=== PATIENT | female | born 1995 | race Caucasian/White ===

== ENCOUNTER 2018-04-20 11:24 | Emergency (ER) | payer OTHER, SELFPAY ==
[2018-04-20 11:25] VITALS: BP 119/70; PULSE 82; RESP 16; TEMP 36.4; O2SAT 98; BMI 25.4
--- NOTE | 2018-04-20 12:01 | ED.DCSUM_ITS ---
- ER Visit Summary Date of Service: 04/20/18 Chief Complaint: Left external vaginal area infection History of Present Illness: The patient is a 22 F states since Monday she had infection of the left outer vaginal area after shaving. Denies any vaginal bleeding or discharge. Area. Denies any fever. Prior history which she resolved on her own. Physical Examination: Well-appearing young female. Vital signs are stable afebrile. Accompanied by female friend. H EENT exam unremarkable. Neck nontender no lymphadenopathy. Lungs clear to auscultation bilaterally. Heart regular rhythm no murmur. Abdomen soft nontender. She is moving all 4 extremities. Neurovascular intact. Neurologic exam normal. External exam evaluated with female nurse present in the room. Patient has a piercing at the 12 o'clock position of her superior area of her vagina. The left lower labia majora is slightly red and swollen. There appears to be an external folliculitis from shaving. There is no large abscess. It is only mildly tender. The tissue appears to be indurated. There is no fluctuance. Right side and upper aspect of her vagina is not involved. There is no obvious vaginal bleeding or discharge. Test Results: None Emergency Department Course and Treatment: Treatment Plan: Patient does not want any procedures done. She wants to try conservative approach. Warm complexes. Keflex 4 times daily for 10 days. She knows return immediately if this is getting worse to have it incised and drained. She understands that this may need to happen. Disposition: Discharge Impression: Acute left lower labia majora soft tissue infection secondary to folliculitis from shaving This note was generated with [employer] dictation software. It may contain incorrect words, spelling, and punctuation that were not noted in review of the chart prior to signing ED Disposition - Plan for ED Patient: Chief Complaint: Abscess Referrals: Tha Alatorre MD [Primary Care Provider] -
--- NOTE | 2018-04-20 12:01 | ED.DEP ---
ED Disposition - Plan for ED Patient: Disposition: Home or Assisted Living Chief Complaint: Abscess Instructions: ED Staph Infec Abx Tx Only Prescriptions: Cephalexin [Keflex] 500 mg PO Q6 #40 cap Referrals: Tha Alatorre MD [Primary Care Provider] - As Needed Additional Instructions: Warm compresses and/or warm soaks 3-5 times per day. Motrin and Tylenol for pain. Keflex antibiotic 1 pill 4 times a day till gone. You have an early infection on your left lower vaginal area. This may or may or not improve with the warm compresses and antibiotic. If is getting worse you need to return and have it drained.
[2018-04-20] MEDS: Cephalexin 250 MG Capsule 500 MG PO (12:08)
== END 2018-04-20 12:19 | disposition home or self-care (01) ==
LOC: ED 12:10
PROVIDERS: Emergency Provider Emergency Medicine; Family Provider Family Medicine; PCP Family Medicine
DX: N76.2 Acute vulvitis (principal); L73.9 Follicular disorder, unspecified; Z72.0 Tobacco use
CPT/HCPCS: 99282

== ENCOUNTER 2019-05-08 07:52 | Outpatient (RCR) | payer MEDICAID, SELFPAY | END 2019-05-08 23:59 | LOC: DC 07:52 | PROVIDERS: Family Provider Family Medicine; PCP Family Medicine; Visit Provider Obstetrics & Gynecology | DX: O24.410 Gestational diabetes mellitus in pregnancy, diet controlled (principal); Z3A.00 Weeks of gestation of pregnancy not specified | CPT/HCPCS: G0108 ==

== ENCOUNTER 2019-05-13 03:42 | Outpatient (CLI) | payer MEDICAID, SELFPAY ==
[2019-05-13 04:10] VITALS: BMI 30.4
--- NOTE | 2019-05-17 07:47 | OB.TRI.NOTE ---
History of Present Illness Reason For Visit: DECREASED MOVEMENT Date of Service: 05/13/19 Final LYN: 07/11/19 Gestational age: 32 Weeks and 1 Days Allergies No Known Allergies Allergy (Verified 05/13/19 04:10) NST - FHR Rate Baby A Baseline: 130 Variability:: Moderate Accelerations:: 15 x 15 Decelerations:: None NST Reactive:: Yes Uterine Activity:: quiet
== END 2019-05-13 04:35 | disposition home or self-care (01) ==
LOC: WPOUT 04:04 → WP 04:06
PROVIDERS: Family Provider Family Medicine; PCP Family Medicine; Visit Provider Obstetrics & Gynecology
DX: O36.8130 Decreased fetal movements, third trimester, not applicable or unspecified (principal); Z3A.32 32 weeks gestation of pregnancy
CPT/HCPCS: 59025; 59050; 99218; G0378

== ENCOUNTER 2019-07-10 07:20 | Outpatient (CLI) | payer MEDICAID, SELFPAY ==
[2019-07-10 08:14] VITALS: BMI 31.4
[2019-07-10 08:27] LABS: ROM Internal Control Test YES-OK TO RESULT pt. (Internal QC); ROM Patient Test Negative (Negative); Record Kit Lot#, ROM+ J8255
--- NOTE | 2019-07-10 08:38 | OB.TRI.PN ---
Progress Notes Date of Service: 07/10/19 Progress Note: at 39w6d Presented this am for possible rupture of membranes. GDM class A1. O: SVE:1cm per nursing FHT: 135, moderate TOCO: Irregular A: Vaginal Discharge False Labor P: 1) ROM Plus negative, no gross rupture 2) Return as scheduled for IOL Laboratory Studies: Laboratory Tests 07/10/19 Range/Units 08:00 Vag Amniotic Fld Detect Negative (Negative)
== END 2019-07-10 09:15 | disposition home or self-care (01) ==
LOC: WPOUT 07:29 → WP 07:30
PROVIDERS: Family Provider Family Medicine; PCP Family Medicine; Referring Provider Obstetrics & Gynecology; Visit Provider Obstetrics & Gynecology
DX: O47.1 False labor at or after 37 completed weeks of gestation (principal); O26.893 Other specified pregnancy related conditions, third trimester; N89.8 Other specified noninflammatory disorders of vagina; Z3A.39 39 weeks gestation of pregnancy
CPT/HCPCS: 59025; 59050; 84112; 99218; G0378

== ENCOUNTER 2019-07-10 20:00 | Outpatient (CLI) | payer MEDICAID, SELFPAY ==
[2019-07-10 08:14] VITALS: BMI 31.4
[2019-07-10 20:30] VITALS: BMI 30.9
[2019-07-10] MEDS: hydrOXYzine PAM 25 MG Capsule 100 MG PO (22:37)
--- NOTE | 2019-07-31 12:23 | OB.TRI.PN ---
Progress Notes Date of Service: 07/10/19 Progress Note: Presented to L&D with complaint of uterine contractions. No vaginal bleeding or leakage of fluid O: 135, moderate variability, accels, no decels, reactive TOCO: every 3-4 min, moderate 3cm/80%/-3 A: False labor P: 1) Vistaril given for therapeutic rest. No signs of active labor. 2) D/C home
== END 2019-07-10 22:40 | disposition home or self-care (01) ==
LOC: WPOUT 20:38 → WP 20:38
PROVIDERS: Family Provider Family Medicine; PCP Family Medicine; Referring Provider Advanced Practice Midwife; Visit Provider Advanced Practice Midwife
DX: O47.9 False labor, unspecified (principal); Z3A.00 Weeks of gestation of pregnancy not specified
CPT/HCPCS: 59025; 59050; 99218; G0378

== ENCOUNTER 2019-07-11 18:40 | Inpatient (IN) | payer MEDICAID, SELFPAY ==
[2019-07-10 20:30] VITALS: BMI 30.9
[2019-07-11] MEDS: Lactated Ringers 1,000 ML 50 ML IV (19:30)
[2019-07-11] MEDS: Lactated Ringers 500 ML 999 ML IV ×2 (19:42→20:38)
[2019-07-11 19:49] LABS: ROM Internal Control Test YES-OK TO RESULT pt. (Internal QC)
[2019-07-11 19:52] LABS: ROM Patient Test POSITIVE (Negative)
[2019-07-11 19:53] LABS: Record Kit Lot#, ROM+ J8255
[2019-07-11 19:59] VITALS: BMI 31.3
[2019-07-11 20:01] LABS: Absolute Lymphocyte Count 1.59 X10^3/uL (0.83-4.51); Absolute Neutrophil Count 14.9 X10^3/uL (2.0-7.7); Basophil# 0.04 X10^3/uL; Basophil% 0.2 % (0-1); Eosinophil# 0.05 X10^3/uL; Eosinophils% 0.3 % (0-5); Hematocrit 39.2 % (37-47); Hemoglobin 13.2 g/dL (12.0-15.0); Lymphocyte # 1.59 X10^3/ul (4.0); Lymphocyte % 9.2 % (19-41); Mean Corp Hgb Conc 33.7 g/dL (32-36); Mean Corpuscular Hgb 29.9 pg (27.0-32.0); Mean Corpuscular Volume 88.9 fL (81-99); Mean Platelet Vol. 12.2 fl (6.2-12.0); Monocyte# 0.59 X10^3/uL; Monocyte% 3.4 % (0-10); NRBC Flagged by Analyzer 0 % (0-5); Neutrophil # 14.93 X10^3/uL (2.7-7.7); Neutrophil % 86.3 % (47-70); Platelet Count 175 K/mm3 (150-450); RBC Distribution Width CV 13.5 % (11.6-14.6); RBC Distribution Width SD 44.1 fl (35.1-43.9); Red Blood Count 4.41 M/mm3 (4.2-5.4); White Blood Count 17.3 K/mm3 (4.4-11.0)
[2019-07-11] MEDS: fentaNYL-bupivacaine (epidural) 100 ML BAG EPIDURAL (20:28)
--- NOTE | 2019-07-11 20:34 | PCM.HP.OB ---
History Date of Admission: 07/11/19 Final LYN: 07/11/19 Gestational age: 40 Weeks and 0 Days History of this : Patient presented with ctxs and LOF. Allergies No Known Allergies Allergy (Verified 07/10/19 08:16) Home Medications: Home Medications No122/Iron/Folic Acid [ Multi Tablet] 1 ea PO DAILY 05/13/19 Smoking Status: Current every day smoker History Past Pregnancies: Past Pregnancies Delivery Date Name GA/Weeks Outcome Route Weight Infant Gender Labor Length Anesthesia Delivery Location Provider FOB Labs: See [facility] H[facility]P h/o trich positive but was negative on 02/22/19 Physical Exam General: Alert, Oriented x3 Abdomen: Soft, Non Tender, Non-Distended, Gravid Extremities:: No tenderness/swelling Neurological: Cranial nerves II-XII grossly intact [place] P[employer]: Normal external genitalia Estimated gestational size: Appropriate for gestational size Presentation: Cephalic Cervix Dilation (cm): 5 Station: -2 Effacement (%): 80 Assessment/Plan This is a 23 year-old, G1, P0, at 40 weeks gestational age. Admit to L&D Pain - epidural ROM positive confirms rupture GBS positive - pcn per protocol EFW - less than 4500g, patient with adequate pelvis A1GDM - monitoring per protocol Routine care
--- NOTE | 2019-07-11 21:25 | NURSING ---
Pt planning to primarily formula feed but give colostrum after .
[2019-07-11 21:45] LABS: Bedside Glucose 121 mg/dL (70-110)
[2019-07-11 21:45] LABS: Bedside Glucose 106 mg/dL (70-110)
[2019-07-11 22:20] LABS: Bedside Glucose 103 mg/dL (70-110)
[2019-07-11] MEDS: Lactated Ringers 1,000 ML 200 ML IV (23:22)
[2019-07-11 23:31] LABS: Bedside Glucose 97 mg/dL (70-110)
[2019-07-12 00:31] LABS: Bedside Glucose 80 mg/dL (70-110)
[2019-07-12] MEDS: fentaNYL-bupivacaine (epidural) 100 ML BAG EPIDURAL ×3 (00:34→10:20)
[2019-07-12 01:26] LABS: Bedside Glucose 98 mg/dL (70-110)
[2019-07-12 02:31] LABS: Bedside Glucose 105 mg/dL (70-110)
[2019-07-12] MEDS: Ondansetron 4 MG/2 ML Vial IV ×2 (02:52→08:31)
[2019-07-12 03:30] LABS: Bedside Glucose 83 mg/dL (70-110)
[2019-07-12 04:36] LABS: Bedside Glucose 81 mg/dL (70-110)
[2019-07-12] MEDS: Lactated Ringers 1,000 ML 200 ML IV ×2 (04:40→09:58)
[2019-07-12] MEDS: Acetaminophen 325 MG Tablet PO ×2 (05:24→11:21)
[2019-07-12 05:51] LABS: Bedside Glucose 77 mg/dL (70-110)
[2019-07-12] MEDS: 0.9% Saline Lock 10 ML Syringe IV ×2 (06:21→15:38)
[2019-07-12 06:41] LABS: Bedside Glucose 71 mg/dL (70-110)
[2019-07-12] MEDS: Oxytocin 30 units/NS 500 ml 30 UNITS/500 ML IV.SOLN IV (06:45)
[2019-07-12 07:46] LABS: Bedside Glucose 85 mg/dL (70-110)
--- NOTE | 2019-07-12 08:33 | PCM.PN.BLA ---
Progress Note pt seen at beside- VE: AL/100/+1 station. Continue pitocin- will start pushing when Complete. Anticipate . FHR tracing reviewed.
[2019-07-12 09:00] LABS: Bedside Glucose 76 mg/dL (70-110)
[2019-07-12 10:40] LABS: Bedside Glucose 73 mg/dL (70-110)
[2019-07-12 10:40] LABS: Bedside Glucose 76 mg/dL (70-110)
--- NOTE | 2019-07-12 12:12 | PCM.PN.BLA ---
Progress Note pt seen at bedside doing well. VE: 10/100/+3 station. Pushing with good maternal efforts. Anticipate
[2019-07-12 12:15] LABS: Bedside Glucose 50 mg/dL (70-110)
[2019-07-12] MEDS: Oxytocin 30 units/NS 500 ml 30 UNITS/500 ML IV.SOLN 334 UNITS IV (13:03)
--- NOTE | 2019-07-12 13:16 | PCM.OPRPT ---
Vaginal Delivery Maternal Presentation: Active Labor, Spontaneous Rupture of Membranes Medical Reason for Induction: - - GDMA1 Amniotic Membrane Rupture Type: Spontaneous at home Amniotic Fluid Description: Clear Final LYN: 07/11/19 Final LYN Source: US <20 weeks Gestational age: 40 Weeks and 1 Days Date of Procedure: 07/12/19 Pre-Operative Diagnosis: GDMA1, term gestation Post-Operative Diagnosis: live female infant Surgery/ Procedure Performed: Spontaneous Vaginal Delivery Type of Anesthesia: Epidural Description of Procedure: of live female born without complication. Good maternal effort with pushing. Presentation: Vertex Placental Delivery Description: Spontaneous Placenta Disposition: [facility] Cord Vessel Description: 3 Vessels Cord Entanglement: None Drain: Kaplan to straight drain Estimated Blood Loss: 200 Infant A gender: Female (1 minute): 8 (5 minute): 9 Episiotomy Description: None Laceration: None Medications given after delivery: IV Pitocin Complications: None
[2019-07-12 13:30] LABS: Bedside Glucose 83 mg/dL (70-110)
[2019-07-12 14:11] LABS: Bedside Glucose 139 mg/dL (70-110)
[2019-07-12] MEDS: Ibuprofen 600 MG Tablet PO ×2 (15:38→23:54)
[2019-07-12 17:30] VITALS: BP 99/52; PULSE 76; RESP 14; TEMP 36.6; O2SAT 99
[2019-07-12 20:05] VITALS: BP 104/55; PULSE 76; RESP 16; TEMP 36.7; O2SAT 95
[2019-07-12] MEDS: Senna/Docusate Sodium 1 Tablet PO (23:54)
[2019-07-13 00:13] VITALS: BP 115/58; PULSE 67; RESP 16; TEMP 36.7
--- NOTE | 2019-07-13 00:22 | NURSING ---
0015: MOB encouraged to pump because was transferred to [facility]. MOB states she has severe pain with nursing and isn't sure if she wants to continue. Lansinoh cream given earlier in shift, but pt. has hesitancy with wanting to continue . This RN witnessed last feed and pt. was wincing and moaning in pain the entire feed, even though infant had a great latch. This RN asked pt. if she would like to try nursing and she said she would in 2-3 hours since she just nursed infant.
--- NOTE | 2019-07-13 01:56 | NURSING ---
This RN noticed that the MAR for this pt. looked like IV medications were not addressed and still showed running. Charge nurse Gabriela Antoine consulted. Per previous jinriksha driver, pt. was saline locked at 1600 on 07-12-2019. IV Pitocin and LR that were unaddressed were put in as being completed when previous RN saline locked pt.
[2019-07-13 04:12] VITALS: BP 101/53; PULSE 75; RESP 16; TEMP 36.8; O2SAT 96
[2019-07-13 04:21] LABS: Bedside Glucose 76 mg/dL (70-110)
--- NOTE | 2019-07-13 04:53 | NURSING ---
Pt. pumping for first time since infant transfer. Colostrum expressing well, with a small volume gathering for in SCN.
[2019-07-13] MEDS: Acetaminophen 500 MG Tablet 1000 MG PO ×2 (05:13→18:52)
--- NOTE | 2019-07-13 07:51 | PCM.PN.OB ---
Subjective: Seen at bedside, doing well. Patient reports good pain control. Mild lochia. Breast-feeding as well. No difficulty with voiding. Patient requesting DC home today if is discharged. - Physical Exam General: Alert, Oriented x3 Abdomen: Soft, Non Tender, - - fundus firm Extremities: No Calf Tenderness Vital Signs Temp Pulse Resp BP Pulse Ox 98.2 F 75 16 101/53 L 96 07/13/19 04:12 07/13/19 04:12 07/13/19 04:12 07/13/19 04:12 07/13/19 04:12 Oxygen Delivery Method Room Air Weight: 85.366 kg Body Mass Index (BMI) 31.3 Intake and Output for Last 24 Hours 07/11/19 07/12/19 07/13/19 23:59 23:59 23:59 Intake Total 1641.66 / 1641.66 4815.60 / 4815.60 Output Total 2400 / 2400 Balance 1641.66 / 1641.66 2415.60 / 2415.60 POC Glucose 07/13/19 07/12/19 07/12/19 04:12 14:07 12:22 POC Glucose 76 139 H 83 07/12/19 07/12/19 07/12/19 11:29 10:33 09:36 POC Glucose 50 L 76 73 07/12/19 08:36 POC Glucose 76 Medical Necessity - Tobacco Use Smoking Status: Former smoker Assessment/Plan PPD#1, doing well routine care pain mgmt dc home
--- NOTE | 2019-07-13 07:53 | DCINST_ITS ---
Discharge Diet: No Restrictions Discharge Activity: Return to Normal Activity, May not drive while taking narcotic pain medications., May Shower May resume sexual activity in: 4-6 weeks Additional Activity Instructions:: Nothing in the vagina for 4-6 weeks. You may return to work/school in 6 weeks. Call your doctor if your incision/area has: Continuous Slow Oozing, Sudden Increased Bleeding, Increased Pain/ Swelling, Increased Redness, Foul Smelling Discharge Additional Instructions: If you experience any of the following, contact your healthcare provider. * Bleeding that soaks a pad every hour for 2 hours * Fever 100.4 or higher * Unrelieved incision or abdominal pain * Swelling, redness, discharge or bleeding from your incision or episiotomy site * Your incision begins to separate * Problems urinating (including inability to urinate or burning while urinating). * Visual changes * Severe headache * Flu-like symptoms * Pain or redness in one of both of your breasts * Pain, warmth, tenderness or swelling in your legs, especially the calf area * Frequent nausea and vomiting * Symptoms of depression or anxiety If you experience any of the following, call 911 or go to the nearest Emergency Room. * Chest pain * Problems breathing * Seizure activity * Partial or complete paralysis of a body part, slurred speech, weakness or drooping of the face, or a sudden inability to walk or hold your balance Allergies/Adverse Reactions: Allergies No Known Allergies Allergy (Verified 07/11/19 20:44) Medications to take at Discharge No122/Iron/Folic Acid [ Multi Tablet] 1 ea PO DAILY 05/13/19 Ibuprofen [Motrin] 600 mg PO Q6H PRN PRN #30 tab 07/13/19 The following prescriptions were given: Ibuprofen [Motrin] 600 mg PO Q6H PRN PRN #30 tab PRN Reason: Pain Score 1-3/10 Transmission Status: Pending to [facility] When: Call to make an appointment with your doctor in 6 weeks. If you had elevated Blood Pressure or 4th degree laceration you will need to be seen in 2 weeks. Primary Care Physician: Aziza Fields PA-C [Primary Care Provider] - Test Results: Test results from this visit will be discussed in further detail at your follow- up appointment, if applicable.
[2019-07-13 08:15] VITALS: BP 122/64; PULSE 77; RESP 16; TEMP 36.6; O2SAT 99
[2019-07-13] MEDS: Ibuprofen 600 MG Tablet PO (10:58)
[2019-07-13 15:00] VITALS: BP 135/68; PULSE 70; RESP 15; TEMP 36.4; O2SAT 98
[2019-07-13 20:00] VITALS: BP 122/53; PULSE 70; RESP 16; TEMP 36.8
[2019-07-14 02:00] VITALS: BP 110/58; PULSE 69; RESP 16; TEMP 37.3
[2019-07-14 07:30] VITALS: BP 128/71; PULSE 59; RESP 15; TEMP 36.6
[2019-07-14] MEDS: Ibuprofen 600 MG Tablet PO (07:42)
--- NOTE | 2019-07-14 08:50 | PCM.PN.OB ---
Subjective: Bedside, doing well. Patient reports good pain control. Mild lochia. Infant in special care nursery for blood sugars hoping for possible DC tomorrow. - Physical Exam General: Alert, Oriented x3 Abdomen: Soft, Non Tender, Non-Distended, - - Fundus firm Extremities: No Calf Tenderness Vital Signs Temp Pulse Resp BP Pulse Ox 98 F 59 L 15 128/71 H 98 07/14/19 07:30 07/14/19 07:30 07/14/19 07:30 07/14/19 07:30 07/13/19 15:00 Oxygen Delivery Method Room Air Weight: 85.366 kg Body Mass Index (BMI) 31.3 Intake and Output for Last 24 Hours 07/12/19 07/13/19 07/14/19 23:59 23:59 23:59 Intake Total 4815.60 / 4815.60 Output Total 2400 / 2400 Balance 2415.60 / 2415.60 Medical Necessity - Tobacco Use Smoking Status: Former smoker Assessment/Plan day #2, doing well Routine care DC to hotel status
[2019-07-14] MEDS: Acetaminophen 500 MG Tablet 1000 MG PO (14:35)
[2019-07-14 15:55] VITALS: BP 121/64; PULSE 74; RESP 16; TEMP 36.5; O2SAT 97
== END 2019-07-14 16:30 | disposition home or self-care (01) | DRG 560 ==
PROVIDERS: Obstetrics & Gynecology; Admitting Provider Obstetrics & Gynecology; Family Provider Family Medicine; PCP Family Medicine; Referring Provider Obstetrics & Gynecology; Visit Provider Obstetrics & Gynecology
DX: O24.420 Gestational diabetes mellitus in childbirth, diet controlled (principal); O98.82 Other maternal infectious and parasitic diseases complicating childbirth; B95.1 Streptococcus, group B, as the cause of diseases classified elsewhere; O99.334 Smoking (tobacco) complicating childbirth; O48.0 Post-term pregnancy; Z3A.40 40 weeks gestation of pregnancy; Z37.0 Single live birth; O47.9 False labor, unspecified
CPT/HCPCS: 59025; 59050; 82962; 84112; 85025; 86850; 86900; 86901; 99218; J7120; A4216; G0378; J2405

== ENCOUNTER 2021-07-22 19:46 | Emergency (ER) | payer MEDICAID, SELFPAY ==
[2021-07-22] VITALS (7 sets, daily range): BP systolic 110–153; BP diastolic 56–86; PULSE 78–103; RESP 14–20; TEMP 37.3; O2SAT 96–100; BMI 28.0
[2021-07-22] MEDS: Lidocaine 1% (20 ml mdv) 20 ML Vial INFILT (21:42)
[2021-07-22] MEDS: fentaNYL 100 MCG/2 ML Ampul 50 MCG IV (21:42)
[2021-07-22] MEDS: Midazolam 2 MG/2 ML Syringe IV (21:43)
--- NOTE | 2021-07-22 21:44 | EX.ED.DYSGE1 ---
HPI History of Present Illness Chief Complaint: Abscess Informant: patient Onset/Context/Timing Onset: Days Context: Gradual Onset Current Severity: Moderate Maximum Severity: Severe Narrative Narrative: Patient presents secondary to pilonidal cyst. Patient states that she has had a small cyst to this area ever since falling when she was . It recently has become much larger and swollen. She was seen in urgent care 2 days ago and diagnosed with cellulitis. She was started on Keflex. Patient states she has an appointment to see dermatology tomorrow but due to increased pain was not able to wait for that appointment. No fever or chills. No spontaneous drainage. [facility] Medical History Cellulitis of buttock Home Medications cephalexin 500 mg capsule 500 mg PO TID #30 cap 07/20/21 [Rx Last Taken Unknown] hydrocodone-acetaminophen 1 tab PO Q6H PRN 3 Days #10 tab 07/22/21 [Rx Last Taken Unknown] sulfamethoxazole-trimethoprim [Bactrim DS] 1 tab PO BID #20 tab 07/22/21 [Rx Last Taken Unknown] Allergy/AdvReac Type Severity Reaction Status Date / Time No Known Allergies Allergy Verified 07/22/21 19:58 Family History (Updated 07/20/21 @ 14:22 by Erika Conner) Mother Cancer Social History Smoking Status: Former smoker ROS ROS ED Constitutional Constitutional ED: Denies chills or fever(s) Eyes Eyes: Denies change in vision ENT ENT ED: Denies sore throat Cardiovascular Cardiovascular: Denies chest pain Respiratory/Chest Respiratory/Chest: Denies cough or dyspnea Gastrointestinal Gastrointestinal: Denies abdominal pain, diarrhea, nausea or vomiting Genitourinary Genitourinary ED: Denies dysuria Musculoskeletal Musculoskeletal: Denies back pain Integumentary Reports abscess; Denies rash Neurologic Neurologic: Denies headache(s) or weakness Allergic/Immunologic Allergic/Immunologic ED: Denies urticaria EXAM Physical Exam Const Vital Signs: 07/22/21 19:46 07/22/21 21:23 07/22/21 21:25 Temperature 99.2 F H Temperature Source Temporal Pulse Rate 97 102 H Pulse Rate [1 (Initial Baseline)] 103 H Pulse Rate [2] 98 Pulse Rate [3] 101 H Pulse Rate [4] 94 Pulse Rate [5] 89 Respiratory Rate 18 17 Respiratory Rate [1 (Initial Baseline)] 20 H Respiratory Rate [2] 16 Respiratory Rate [3] 18 Respiratory Rate [4] 16 Respiratory Rate [5] 19 H Blood Pressure 153/85 H 123/86 H Blood Pressure [1 (Initial Baseline)] 123/86 H Blood Pressure [2] 115/82 H Blood Pressure [3] 118/73 Blood Pressure [4] 123/73 H Blood Pressure [5] 115/73 Blood Pressure Mean 107 Pulse Ox 96 100 Oxygen Delivery Method Room Air Room Air Oxygen Delivery Method [1 (Initial Baseline)] Room Air Oxygen Delivery Method [2] Room Air Oxygen Delivery Method [3] Room Air Oxygen Delivery Method [4] Room Air Oxygen Delivery Method [5] Room Air 07/22/21 21:44 07/22/21 21:48 07/22/21 22:02 Temperature Temperature Source Pulse Rate 82 84 78 Pulse Rate [1 (Initial Baseline)] Pulse Rate [2] Pulse Rate [3] Pulse Rate [4] Pulse Rate [5] Respiratory Rate 14 19 H 18 Respiratory Rate [1 (Initial Baseline)] Respiratory Rate [2] Respiratory Rate [3] Respiratory Rate [4] Respiratory Rate [5] Blood Pressure 113/56 L 113/56 L 110/69 Blood Pressure [1 (Initial Baseline)] Blood Pressure [2] Blood Pressure [3] Blood Pressure [4] Blood Pressure [5] Blood Pressure Mean 75 82 Pulse Ox 100 100 100 Oxygen Delivery Method Room Air Room Air Room Air Oxygen Delivery Method [1 (Initial Baseline)] Oxygen Delivery Method [2] Oxygen Delivery Method [3] Oxygen Delivery Method [4] Oxygen Delivery Method [5] 07/22/21 22:25 Temperature Temperature Source Pulse Rate 80 Pulse Rate [1 (Initial Baseline)] Pulse Rate [2] Pulse Rate [3] Pulse Rate [4] Pulse Rate [5] Respiratory Rate 16 Respiratory Rate [1 (Initial Baseline)] Respiratory Rate [2] Respiratory Rate [3] Respiratory Rate [4] Respiratory Rate [5] Blood Pressure 114/70 Blood Pressure [1 (Initial Baseline)] Blood Pressure [2] Blood Pressure [3] Blood Pressure [4] Blood Pressure [5] Blood Pressure Mean 84 Pulse Ox 100 Oxygen Delivery Method Room Air Oxygen Delivery Method [1 (Initial Baseline)] Oxygen Delivery Method [2] Oxygen Delivery Method [3] Oxygen Delivery Method [4] Oxygen Delivery Method [5] Positive well nourished and well developed General Appearance ED: well developed HEENT Reports normocephalic and head/scalp atraumatic Eyes PERRL and EOMs intact bilaterally Neck supple Chest Wall inspection of chest normal and palpation of chest normal Resp normal respiratory effort and clear to auscultation bilaterally Cardio regular rate and regular rhythm GI normal to inspection, nondistended, normoactive bowel sounds Palpation: soft Back/Spine Back/Spine Narrative: Pilonidal cyst with mild surrounding erythema. Area of induration measures approximately 4 x 3 cm. Extremity normal to inspection Neuro oriented x3 and no sensory deficits noted Sensorium / Orientation: alert Motor Exam: strength 5/5 throughout Psych mental status grossly normal MDM MDM MDM Narrative Medical decision making narrative: Patient consented for procedural sedation and I&D of pilonidal cyst. Treatment and Re-Evaluation Comments:: Patient placed on boom stick worker. Patient was given 2 mg of IV Versed and 50 mcg of IV fentanyl. Following this wound is cleansed and 1 cc of lidocaine was used locally for anesthetic. Following this a #11 blade is used to make a 2 cm incision. Return of yellow pus is noted and loculations were broken up with curved hemostats. Wound is cleansed and dressed. Total sedation time was 15 minutes. Patient recovered without difficulty. She will continue the Keflex she is currently on. We will add Bactrim as well as [place] for pain control. She is referred to surgery for follow-up. Discharge Plan Triage Chief Complaint: Abscess ED Provider: Isaura Calvo Dx/Rx/DC Orders Clinical Impression: Pilonidal cyst Instructions: ED Cyst Pilonidal Infected IandD Prescriptions: New sulfamethoxazole-trimethoprim [Bactrim DS] 800-160 mg tablet 1 tab PO BID Qty: 20 RF: 0 hydrocodone-acetaminophen 5-325 mg tablet 1 tab PO Q6H PRN (Reason: pain) 3 Days Qty: 10 RF: 0 No Action cephalexin 500 mg capsule 500 mg PO TID Qty: 30 RF: 0 Primary Care Provider: Aziza Fields Referrals: Yo Hernandez MD [STAFF PHYSICIAN] - 1 Week Aziza Fields PA-C [Primary Care Provider] - Disposition Disposition: Home, Self Care Discharge Date/Time: 07/22/21 23:12
== END 2021-07-22 23:12 | disposition home or self-care (01) ==
PROVIDERS: Emergency Provider Emergency Medicine; PCP Family Medicine
DX: L05.91 Pilonidal cyst without abscess (principal); Z87.891 Personal history of nicotine dependence
CPT/HCPCS: 10080; 96374; 96375; 99152; 99284; A4216